=== PATIENT | male | born 1990 | race Caucasian/White ===

== ENCOUNTER 2020-06-28 16:39 | Emergency (ER) | payer OTHER, SELFPAY ==
--- NOTE | ~2020-06-28 | CT_ITS ---
EXAMINATION: CT abdomen pelvis w con DATE: 06/28/2020 17:44 INDICATION: Abdominal pain. TECHNIQUE: Computed tomography (CT) of the abdomen and pelvis was performed with 100 mL Omnipaque-350 intravenous contrast. Automated exposure control and iterative reconstruction technique were employe d. The dose-length product was 630.64 mGy-cm. COMPARISON: None FINDINGS: Minimal bibasilar atelectasis. Heart size is normal. No pericardial or pleural effusion. Liver, decom pressed gallbladder, spleen, pancreas, bilateral adrenal glands and kidneys are normal. Bowels are un remarkable with no wall thickening or obstruction. Small focus of inflammatory stranding in the fat a nterior to the hepatic flexure of the colon without associated diverticulum suggesting either epiploi c appendagitis or fat necrosis. The appendix is not visualized. No pericecal inflammatory change to s uggest acute appendicitis. Tiny fat-containing umbilical hernia and small fat-containing left inguina l hernia. Bladder is normal. No free intraperitoneal gas or fluid. No pathologically enlarged abdomin al or pelvic lymphadenopathy. Mild spondylosis at L5-S1 including 4 mm retrolisthesis L5 on S1. IMPRESSION: 1. Small focus of inflammatory stranding in the fat anterior to the hepatic flexure of the colon with out associated diverticulum suggesting either epiploic appendagitis or fat necrosis. Reviewed, dictated and finalized at location A. IMPRESSION: 1. Small focus of inflammatory stranding in the fat anterior to the hepatic fle xure of the colon without associated diverticulum suggesting either epiploic ap pendagitis or fat necrosis.
[2020-06-28 16:47] VITALS: BP 130/77; PULSE 87; RESP 18; TEMP 36.6; O2SAT 98
[2020-06-28 17:08] LABS: Hematocrit 44.4 % (42.0-52.0); Hemoglobin 15.3 g/dL (14.0-18.0); Immature Granulocyte Percent A 0.4 % (0-0.5); Mean Corpuscular HGB Conc 34.5 g/dl (32-36); Mean Corpuscular Hemoglobin 30.4 pg (26-34); Mean Corpuscular Volume 88.3 fl (80-100); Mean Platelet Volume 8.7 fl (7.4-10.4); Neutrophils Percent Auto 49.2 % (45.5-73.1); Platelet Count Result 300 k/mm3 (150-375); Red Blood Count 5.03 M/mm3 (4.6-6.20); Red Cell Distribution Width 12.6 % (11.5-14.5); White Blood Count 8.3 K/mm3 (4.5-10.0)
[2020-06-28 17:09] LABS: Basophils Percent Auto 0.4 % (0.2-1.2); Eosinophils Absolute Auto 0.1 K/mm3 (0-0.3); Eosinophils Percent Auto 1.1 % (0-4.4); Immature Granulocyte Absolute 0.03 K/mm3 (0.00-0.031); Lymphocytes Absolute Auto 3.09 K/mm3 (0.9-3.2); Lymphocytes Percent Auto 37.4 % (18.3-44.2); Monocytes Percent Auto 11.5 % (2.6-8.5); Neutrophils Absolute Auto 4.1 K/mm3 (1.3-6.7)
[2020-06-28 17:10] LABS: Add Urine Microscopic? NO; Appearance Urine Clear (Clear); Bilirubin Urine Negative (Negative); Blood Urine Negative (Negative); Color Urine Yellow (Yellow); Glucose Urine UA Negative (Negative); Ketones Urine Negative (Negative); Leukocyte Esterase Ur Negative LEU/UL (Negative); Nitrate Urine Negative (Negative); Protein Urine Negative (Negative); Specific Grav Ur 1.024 (1.001-1.035); Urobilinogen Urine Negative mg/dL (<2.0)
[2020-06-28] MEDS: SODIUM CHLORIDE 0.9% IV 1,000 ML 999 ML IV CONT (17:10)
--- NOTE | 2020-06-28 17:16 | ED.ABDPAIN ---
HPI - Abdominal Pain General Chief Complaint: Abdominal Pain Stated Complaint: R ABD PAIN SINCE SUNDAY Time Seen by Provider: 06/28/20 16:59 Source: patient Mode of arrival: ambulatory Limitations: no limitations History of Present Illness HPI narrative: Patient presents with right upper quadrant abdominal pain for 3 days. He has had no fever, nausea or vomiting. He gauges the pain at 8 out of 10. If he holds perfectly still it is more like 3 out of 10. He had some rectal bleeding today. He has a history of hemorrhoids. He also has had his appendix out. He has never had ulcerative colitis or Crohn's disease. He does not smoke cigarettes, he rarely drinks alcohol, he does not do marijuana. His surgeries include appendectomy, and left wrist fracture. 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 MD elicited complaint: abdominal pain Pertinent past history: other (Appendectomy) Onset (ago): day(s) Pain Consistency: intermittent Location: RUQ Severity: severe Radiation: none Migration to: no migration Exacerbating factors: movement Relieving factors: other (Immobilization) Associated symptoms: hematochezia Related Data Home Medications Medication Instructions Recorded Confirmed gabapentin 300 mg PO TID 06/28/20 Allergies Allergy/AdvReac Type Severity Reaction Status Date / Time morphine Allergy Mild N/V Verified 06/28/20 16:50 Review of Systems Review of Systems: Narrative: CONSTITUTIONAL: Denies fever, chills, or sweats. EYES: Denies visual changes, redness, or discharge. ENT: Denies rhinorrhea, congestion, sore throat, or otalgia. CARDIOVASCULAR: Denies chest pain, palpitations, or edema. RESPIRATORY: Denies cough or dyspnea. GASTROINTESTINAL: He has abdominal pain, but not nausea, vomiting, or diarrhea. GENITOURINARY: Denies dysuria or hematuria. SKIN: Denies rash or itching. MUSCULOSKELETAL: Denies back pain, joint pain, or myalgia. NEUROLOGIC: Denies headache, numbness, or weakness. He has neuropathy. All systems reviewed & are unremarkable except as noted in HPI and below PMFSH Past Medical History Medical History Peripheral neuropathy Surgical History Surgical History History of appendectomy History of surgery on left wrist Social History Social History (Updated 06/28/20 @ 17:19 by Marley Garcia MD) Smoking status: Never smoker Alcohol intake: current Substance use: never Exam Narrative: Exam Narrative: GENERAL: Well-appearing, well-nourished, and in no acute distress. HEAD: Normocephalic, atraumatic. EYES: PERRLA and EOMI. ENT: Nares clear, no rhinorrhea or epistaxis. Mucous membranes moist. NECK: Supple. CHEST: Clear to auscultation. No respiratory distress. HEART: Regular rate and rhythm. No murmur heard. Normal peripheral pulses. ABDOMEN: Soft, tender, nondistended, normal active bowel sounds. EXTREMITIES: Normal range of motion. No edema. SKIN: Warm, dry, no rash. NEURO: No focal deficits. Alert and oriented x3. PSYCH: Normal mood and affect. Course Reevaluation(s) Reevaluation #1: Patient had refused a fentanyl he was afraid of the narcotic. He still has the right upper quadrant pain. He will accept some Vicodin as outpatient medication. I encouraged him to see Dr. Falk for follow-up on his rectal bleeding. I explained he needed a colonoscopy to determine the source of the bleeding. Date: 06/28/20 Time: 18:21 Vital Signs Vital signs: Vital Signs Temperature 97.9 F 06/28/20 16:47 Pulse Rate 87 06/28/20 16:47 Respiratory Rate 18 06/28/20 16:47 Blood Pressure 130/77 06/28/20 16:47 Pulse Oximetry 98 06/28/20 16:47 Temperature 97.9 F 06/28/20 16:47 Pulse Rate 87 06/28/20 16:47 Respiratory Rate 18 06/28/20 16:47 Blood Pressure 130/77 06/28/20 16:47 Pulse Oximetry 98 06/28/20 16:47 MDM - Abdominal Pain MDM Narrative
[2020-06-28 17:19] LABS: Alanine Aminotransferase 37 U/L (4-50); Albumin Level 4.3 g/dL (3.5-5.1); Alkaline Phosphatase 107 U/L (38-126); Anion Gap 9 mmol/L (8-16); Aspartate Amino Transferase 32 U/L (17-59); Bilirubin,Total 0.2 mg/dL (0.2-1.3); Blood Urea Nitrogen 19 mg/dL (9-20); Calcium 9.2 mg/dL (8.4-10.2); Carbon Dioxide 26 mmol/L (22-30); Chloride 102 mmol/L (98-107); Estimated CRCL calculation 80 ml/min; Estimated Glomerular Filt Rate > 60; Glucose 96 mg/dL (75-110); Lipase 147 U/L (23-300); Sodium 137 mmol/L (137-145)
--- NOTE | 2020-06-28 17:26 | PC.NURSE ---
Pt. refused fentanyl medication. Rest of medication wasted and documented in pyxis.
--- NOTE | 2020-06-28 17:26 | PC.NURSE ---
Called lab to add PT INR
[2020-06-28 17:42] LABS: Prothrombin Time 12.6 Seconds (11.1-14.7)
[2020-06-28 18:41] VITALS: BP 128/74; PULSE 70; RESP 14; O2SAT 99
== END 2020-06-28 18:42 | disposition home or self-care (01) ==
PROVIDERS: Emergency Provider Emergency Medicine; PCP Nurse Practitioner
DX: K63.89 Other specified diseases of intestine (principal); G62.9 Polyneuropathy, unspecified
CPT/HCPCS: 36415; 74177; 80053; 81003; 83690; 85025; 85610; 96360; 99284; J3010; J7030; Q9967

== ENCOUNTER 2020-11-21 12:42 | Emergency (ER) | payer OTHER, SELFPAY ==
--- NOTE | ~2020-11-21 | XR_ITS ---
XR lumbar spine 2-3V 11/21/2020 13:20 Indication: Low back pain. Radiculopathy. Procedure: 3 views of the lumbar spine Comparison: No prior studies for comparison. Findings: Vertebral body heights are maintained. No fracture or traumatic malalignment. No evidence f or spondylolisthesis. Mild levocurvature of the lumbar spine. Sacral foramen are symmetric. Impression: 1: No acute abnormality of the lumbar spine. Reviewed, dictated and finalized at location A. IRATORY MANAGER Impression: 1: No acute abnormality of the lumbar spine.
[2020-11-21 12:47] VITALS: BP 134/85; PULSE 91; RESP 18; TEMP 36.3; O2SAT 100
[2020-11-21] MEDS: predniSONE 20 MG TABLET 60 MG PO (13:10)
[2020-11-21] MEDS: IBUPROFEN 400 MG TABLET 800 MG PO (13:10)
[2020-11-21] MEDS: CYCLOBENZAPRINE HCL 10 MG TABLET PO (13:10)
[2020-11-21] MEDS: HYDROcodone/acetaminophen (*CRX) 5-325 MG TABLET 1 TAB PO (13:10)
--- NOTE | 2020-11-21 13:13 | ED.BACK ---
HPI - Back Pain/Injury General Chief Complaint: Back Pain/Injury Stated Complaint: hurt back lifting yesterday Time Seen by Provider: 11/21/20 12:52 Source: patient Mode of arrival: ambulatory Limitations: no limitations History of Present Illness HPI Narrative: Patient a 30-year-old male complaining of low back pain right side rating to his right lower extremity started when he woke up this morning. Patient states that the pain actually started yesterday when he was moving heavy furnitures but worse when he woke up this morning he was unable to walk due to the severity of the pain. Patient states his pain is a 10 out of 10 dull aching. Patient denies any urinary or bowel incontinence, fever, chills or urinary symptoms. Patient denies any weakness or numbness. Related Data Home Medications Medication Instructions Recorded Confirmed gabapentin 300 mg PO TID 06/28/20 Allergies Allergy/AdvReac Type Severity Reaction Status Date / Time morphine Allergy Intermediate Hives Verified 11/21/20 12:50 Review of Systems Review of Systems: All systems reviewed & are unremarkable except as noted in HPI and below Constitutional: Constitutional: Denies body ache(s), Denies chills, Denies excessive sweating, Denies fatigue, Denies fever(s), Denies headache(s), Denies lethargy, Denies malaise, Denies weakness and Denies weight loss Eyes: Eyes: Denies blurry vision, Denies change in vision and Denies loss of vision ENT: Denies dizziness, Denies ear discharge, Denies headache(s), Denies lip swelling, Denies epistaxis, Denies nasal congestion, Denies neck pain, Denies throat swelling and Denies tongue swelling Cardiovascular: Cardiovascular: Denies chest pain, Denies chest pain at rest, Denies chest pain with activity, Denies diaphoresis, Denies rapid heart rate, Denies edema, Denies irregular heart rhythm, Denies lightheadedness, Denies palpitations, Denies dyspnea and Denies dyspnea on exertion Respiratory: Respiratory: Denies chest congestion, Denies cough, Denies hemoptysis, Denies dyspnea and Denies dyspnea on exertion Gastrointestinal: Gastrointestinal: Denies abdominal pain, Denies melena, Denies hematochezia, Denies diarrhea, Denies nausea, Denies vomiting and Denies hematemesis Musculoskeletal: Musculoskeletal: Denies abnormal gait, Denies deformity, Denies joint swelling, Denies limited range of motion, Denies neck pain and Denies numbness Neurologic: Denies Abnormal speech present, Denies abnormal gait, Denies confusion, Denies dizziness, Denies headache(s), Denies focal weakness, Denies loss of vision, Denies numbness, Denies Other visual disturbances, Denies Sensory deficit (Neuro) and Denies weakness Psychiatric: Psychiatric: Denies confusion, Denies depression, Denies auditory hallucinations, Denies homicidal ideation and Denies suicidal ideation Endocrine: Endocrine: Denies cold intolerance, Denies excessive sweating, Denies fatigue, Denies heat intolerance and Denies palpitations Hematologic/Lymphatic: Hematologic/Lymphatic: Denies easy bleeding and Denies easy bruising Allergic/Immunologic: Allergic/Immunologic: Denies lip swelling, Denies throat swelling and Denies tongue swelling PMFSH Past Medical History Medical History (Updated 11/21/20 @ 13:31 by Timothy Espana MD) Peripheral neuropathy Surgical History Surgical History History of appendectomy History of surgery on left wrist Social History Social History (Updated 06/28/20 @ 17:19 by Marley Garcia MD) Smoking status: Never smoker Alcohol intake: current Substance use: never Gender identity (if verbalized by the patient): Male Exam Const: General: cooperative, healthy appearing, comfortable, no acute distress, well developed, alert and awake; No confusion Orientation/consciousness: oriented to person, oriented to place, oriented to time, patient oriented x3 and No confusion Limitations
--- NOTE | 2020-11-21 13:39 | PC.NURSE ---
Dr. Espana at bedside to discuss results with pt.
== END 2020-11-21 13:50 | disposition home or self-care (01) ==
PROVIDERS: Emergency Provider Emergency Medicine; PCP Nurse Practitioner
DX: S39.012A Strain of muscle, fascia and tendon of lower back, initial encounter (principal); G62.9 Polyneuropathy, unspecified; X50.0XXA Overexertion from strenuous movement or load, initial encounter
CPT/HCPCS: 72100; 99283; A9270; J7512

== ENCOUNTER 2021-01-17 16:47 | Outpatient (CLI) | payer OTHER, SELFPAY ==
--- NOTE | ~2021-01-17 | XR_ITS ---
XR lumbar spine 2-3V 01/17/2021 17:04 Indication: Low back pain Procedure: 3 views lumbar spine Comparison: 11/21/2020 Findings: Mild levocurvature of the lumbar spine. Vertebral body heights are maintained. Mild disc na rrowing at L5-S1. No evidence for spondylolysis or spondylolisthesis. Pedicles intact. Impression: 1: Mild lumbar spondylosis. Reviewed, dictated and finalized at location A. Impression: 1: Mild lumbar spondylosis.
== END 2021-01-17 16:48 | disposition home or self-care (01) ==
LOC: CHSIMG 16:49
PROVIDERS: PCP Family Medicine; Visit Provider Nurse Practitioner Family
DX: M54.5 Low back pain (principal)
CPT/HCPCS: 72100

== ENCOUNTER 2021-01-22 09:18 | Outpatient (CLI) | payer OTHER, SELFPAY ==
--- NOTE | ~2021-01-22 | MR_ITS ---
. EXAMINATION: MR lumbar spine wo con DATE: 01/22/2021 10:13 INDICATION: Low back pain. TECHNIQUE: Magnetic resonance imaging (MRI) of the lumbar spine was performed without intravenous con trast. Sequences included sagittal T2-weighted FSE, sagittal T2-weighted FS FSE, sagittal T1-weighted FSE, and axial T2-weighted FSE. COMPARISON: Lumbar spine radiographs 01/17/2021 FINDINGS: There is 7 degrees levocurvature of lumbar spine. There is 3 mm retrolisthesis of L5 on S1. Vertebral body heights are normal. There is mildly decreased disc height at L5-S1. The distal spinal cord signal intensity is normal. The conus medullaris is at L1. The following disc levels are specif ically discussed: L1-L2 through L4-L5: The disc does not extend beyond the endplate margin. There is no facet joint ost eoarthritis. There is no neural foraminal stenosis. There is no central canal stenosis. L5-S1: The disc is bulging and has an annular fissure. There is no facet joint osteoarthritis. There is no neural foraminal stenosis. There is mild central canal stenosis. IMPRESSION: 1. Mild lumbar spondylosis. Reviewed, dictated and finalized at location A. OY IMPRESSION: 1. Mild lumbar spondylosis.
== END 2021-01-22 09:19 | disposition home or self-care (01) ==
LOC: CHSIMG 09:19
PROVIDERS: PCP Nurse Practitioner Family; Visit Provider Nurse Practitioner Family
DX: M54.9 Dorsalgia, unspecified (principal)
CPT/HCPCS: 72148

== ENCOUNTER 2021-03-28 15:06 | Outpatient (CLI) | payer OTHER, SELFPAY ==
--- NOTE | ~2021-03-28 | XR_ITS ---
XR foot LT min 3V DATE: 03/28/2021 15:23 INDICATION: Pain and swelling of left foot and dorsal lateral tarsal area TECHNIQUE: 4 views COMPARISON: None FINDINGS: No fracture, dislocation, periosteal reaction or bone destruction, erosive change or other significant abnormality. IMPRESSION: Negative Reviewed, dictated and finalized at location A. IMPRESSION: Negative
== END 2021-03-28 15:07 | disposition home or self-care (01) ==
LOC: CHSIMG 15:09
PROVIDERS: PCP Nurse Practitioner Family; Visit Provider Nurse Practitioner Family
DX: M79.672 Pain in left foot (principal)
CPT/HCPCS: 73630

== ENCOUNTER 2021-05-23 13:28 | Outpatient (CLI) | payer OTHER, SELFPAY ==
[2021-05-23 13:41] LABS: Basophils Absolute Auto 0.03 K/mm3 (0.00-0.10); Basophils Percent Auto 0.4 % (0.0-1.0); Eosinophils Absolute Auto 0.18 K/mm3 (0.02-0.50); Eosinophils Percent Auto 2.2 % (1.0-6.0); Hematocrit 45.9 % (40.0-54.0); Hemoglobin 15.4 g/dL (14.0-18.0); Immature Granulocyte Absolute 0.03 K/mm3 (0.00-0.00); Immature Granulocyte Percent A 0.4 % (0.0-0.0); Lymphocytes Absolute Auto 2.24 K/mm3 (1.10-4.50); Mean Corpuscular HGB Conc 33.6 g/dL (32.0-36.0); Mean Corpuscular Hemoglobin 30.1 pg (27.0-31.0); Mean Corpuscular Volume 89.8 fL (78.0-102.0); Mean Platelet Volume 8.5 fl (8.7-11.0); Monocytes Absolute Auto 0.96 K/mm3 (0.10-0.90); Neutrophils Absolute Auto 4.6 K/mm3 (1.7-7.2); Platelet Count Result 356 K/mm3 (150-420); Red Blood Count 5.11 M/mm3 (4.70-6.10); Red Cell Distribution Width 12.3 % (11.6-14.4)
[2021-05-23 15:13] LABS: Alanine Aminotransferase 18 U/L (16-63); Alkaline Phosphatase 87 U/L (46-116); Anion Gap 10 mmol/L (8-16); Aspartate Amino Transferase 17 U/L (15-37); Bilirubin,Total 0.3 mg/dL (0.00-1.00); Blood Urea Nitrogen 14 mg/dL (7-18); Calcium 9.2 mg/dL (8.5-10.1); Carbon Dioxide 29 mmol/L (21-32); Chloride 103 mmol/L (98-108); Estimated Glomerular Filt Rate > 60; Glucose 86 mg/dL (70-99); Osmolality Calculated 293 mOsm/kg (285-295); Potassium 4.6 mmol/L (3.5-5.1); Sodium 142 mmol/L (136-145); Total Protein 7.5 g/dL (6.4-8.2); Uric Acid 5.6 mg/dL (3.5-7.2)
== END 2021-05-23 13:29 | disposition home or self-care (01) ==
LOC: CHSLAB 13:31
PROVIDERS: PCP Nurse Practitioner Family; Visit Provider Nurse Practitioner Family
DX: M79.672 Pain in left foot (principal)
CPT/HCPCS: 36415; 80053; 84550; 85025

== ENCOUNTER 2021-11-16 14:11 | Outpatient (CLI) | payer OTHER, SELFPAY ==
[2021-11-16 15:09] LABS: SARS-CoV-2 Ag Negative (Negative)
== END 2021-11-16 14:12 | disposition home or self-care (01) ==
PROVIDERS: PCP Nurse Practitioner Family; Visit Provider Nurse Practitioner Family
DX: Z20.822 Contact with and (suspected) exposure to COVID-19 (principal)
CPT/HCPCS: 87426; C9803

== ENCOUNTER 2021-11-28 14:27 | Outpatient (CLI) | payer SELFPAY ==
[2021-11-28 15:20] LABS: SARS-CoV-2 Ag Positive (Negative)
[2021-11-28 15:21] LABS: Influenza Control Valid (Valid)
== END 2021-11-28 14:28 | disposition home or self-care (01) ==
LOC: CHSLAB 14:30
PROVIDERS: PCP Nurse Practitioner Family; Visit Provider Nurse Practitioner Family
DX: U07.1 COVID-19 (principal); R09.81 Nasal congestion
CPT/HCPCS: 87426; 87804; C9803

== ENCOUNTER 2023-02-01 08:33 | Emergency (ER) | payer BC, SELFPAY ==
--- NOTE | ~2023-02-01 | XR_ITS ---
Portable chest x-ray Comparison: None Clinical History: Cough Findings: Lungs are clear, without focal consolidation or pleural effusion. Cardiomediastinal silho uette is unremarkable. Bones and soft tissues are unremarkable. Impression: Normal chest. Reviewed, dictated and finalized at location M. Impression: Normal chest.
[2023-02-01 08:45] VITALS: BP 144/90; PULSE 80; RESP 18; TEMP 35.7; O2SAT 97
[2023-02-01 08:51] VITALS: O2SAT 97
[2023-02-01 09:28] LABS: Influenza A QL RT-PCR Negative (Negative); Influenza B QL RT-PCR Negative (Negative); SARS-CoV-2 RNA PCR Negative (Negative)
[2023-02-01 09:31] LABS: RSV RNA, RT-PCR Negative (Negative)
--- NOTE | 2023-02-01 09:34 | ED.SOB ---
HPI - SOB/Dyspnea General Chief Complaint: Shortness of Breath/Dyspnea Stated Complaint: sore throat Time Seen by Provider: 02/01/23 08:34 Source: patient Mode of arrival: ambulatory Limitations: no limitations History of Present Illness HPI Narrative: This is a 33 year gentleman that was recently diagnosed with strep currently on antibiotics is a smoker and has been on antibiotics for strep throat but overnight had coughing spell and felt like he was short of breath there is no audible wheezing no fever chills no nausea vomiting no abdominal pain no chest pain. MD elicited complaint: shortness of breath and cough Onset (ago): day(s) Context: recent illness Timing: intermittent Severity: mild Related Data Allergies Allergy/AdvReac Type Severity Reaction Status Date / Time morphine Allergy Intermediate Hives Verified 10/18/22 07:34 Review of Systems Review of Systems: All systems reviewed & are unremarkable except as noted in HPI and below PMFSH Past Medical History Medical History (Updated 02/01/23 @ 09:40 by Chad Brody MD) Peripheral neuropathy Surgical History Surgical History History of appendectomy History of surgery on left wrist Social History Social History Years smoked: 10 Smoking status: Current every day smoker Alcohol intake: current Substance use: never Gender identity (if verbalized by the patient): Male Exam Const: General: healthy appearing Nutritional Appearance: well nourished Orientation/consciousness: patient oriented x3 Limitations: no limitations HENMT: Head: normal to inspection Face and sinus: normal facial exam Mouth: Yes Abnormal oral and palatal mucosa present Eyes: Conjunctivae: conjunctivae normal Pupils: Equal, round and reactive pupils present EOM: EOMs intact bilaterally Direct Ophthalmoscopy: no photophobia Neck: Neck: normal visual inspection Chest: Chest palpation & inspection: normal inspection of the chest Resp: Effort & Inspection: normal respiratory effort Cardio: Rate: regular rate Rhythm: regular rhythm GI: GI Palp: Yes Soft to palpation Auscultation: normal bowel sounds : General: Yes bladder normal to palpation Urinary Catheter: Urinary Catheter: patent and draining Skin: General skin exam: normal color Rashes: no rashes Wounds: no wounds Neuro: General: patient oriented x3 Cranial nerves: Yes Nystagmus not present Speech: normal speech Gait exam (Neuro): Normal gait present Extrem: General: normal to inspection Psych: Mental Status: mental status grossly normal Affect: normal affect Course Course Emergency Course: X-ray reviewed which shows no acute abnormalities some COVID influenza and RSV were negative. Vital Signs Vital signs: Vital Signs Temperature 35.7 C L 02/01/23 08:45 Pulse Rate 80 02/01/23 08:45 Respiratory Rate 18 02/01/23 08:45 Blood Pressure 144/90 H 02/01/23 08:45 Pulse Oximetry 97 02/01/23 08:45 Temperature 35.7 C L 02/01/23 08:45 Pulse Rate 80 02/01/23 08:45 Respiratory Rate 18 02/01/23 08:45 Blood Pressure 144/90 H 02/01/23 08:45 Pulse Oximetry 97 02/01/23 08:51 Oxygen Delivery Room Air 02/01/23 08:51 MDM - SOB/Dyspnea Lab Data Labs: Lab Results 02/01/23 Range/Units 08:44 Influenza A (RT-PCR) Negative (Negative) Influenza B (RT-PCR) Negative (Negative) RSV (RT-PCR) Negative (Negative) SARS-CoV-2 RNA (RT-PCR) Negative (Negative) Critical Care Time Critical Care Time Critical Care Time: No Discharge Plan Discharge Clinical Impression: Strep sore throat, Respiratory tract congestion with cough Patient Disposition: Home, Self-Care Condition: Stable Instructions: Antibiotic Form, Strep Throat (ED) Additional Instructions: take medicine as prescribed and follow-up primary if symptoms p
[2023-02-01 09:53] VITALS: BP 120/89; PULSE 88; RESP 18; TEMP 36.2; O2SAT 98
== END 2023-02-01 10:01 | disposition home or self-care (01) ==
PROVIDERS: Emergency Provider Emergency Medicine; PCP Physician Assistant
DX: J02.0 Streptococcal pharyngitis (principal); R09.89 Other specified symptoms and signs involving the circulatory and respiratory systems; F17.210 Nicotine dependence, cigarettes, uncomplicated; Z20.822 Contact with and (suspected) exposure to COVID-19
CPT/HCPCS: 71045; 87637; 99283

== ENCOUNTER 2023-03-17 14:46 | Emergency (ER) | payer OTHER, BC, SELFPAY ==
--- NOTE | ~2023-03-17 | US_ITS ---
EXAMINATION: US right upper quadrant DATE: 03/17/2023 15:44 INDICATION: Right upper quadrant abdominal pain. TECHNIQUE: Multiple grayscale and Doppler ultrasound images of the abdomen were obtained. COMPARISON: CT abdomen and pelvis 06/28/2020 FINDINGS: The pancreas is obscured by bowel gas. There is diffuse hepatic steatosis. No liver surface nodularity. There is normal flow in main portal vein. The gallbladder is contracted. No gallstones. There is no sonographic Gann sign. The common duct is normal and measures 4 mm. IMPRESSION: 1. Diffuse hepatic steatosis. Reviewed, dictated and finalized at location A.
--- NOTE | ~2023-03-17 | XR_ITS ---
EXAMINATION: XR abdomen/kub 1V DATE: 03/17/2023 16:21 INDICATION: Right abdominal pain. TECHNIQUE: A supine view of the abdomen on 2 radiographs was obtained. COMPARISON: CT abdomen and pelvis 06/28/2020 FINDINGS: There are no dilated loops of bowel. There is a moderate volume of stool in the colon. Ther e is no visible urolithiasis. IMPRESSION: 1. Normal bowel gas pattern. Reviewed, dictated and finalized at location E.
[2023-03-17 14:54] VITALS: BP 146/98; PULSE 97; RESP 18; TEMP 36.8; O2SAT 96
[2023-03-17 15:07] LABS: Basophils Percent Auto 0.3 % (0.2-1.2); Eosinophils Absolute Auto 0.1 K/mm3 (0-0.3); Eosinophils Percent Auto 0.8 % (0-4.4); Hematocrit 46.2 % (42.0-52.0); Hemoglobin 15.6 g/dL (14.0-18.0); Immature Granulocyte Absolute 0.05 K/mm3 (0.00-0.031); Immature Granulocyte Percent A 0.5 % (0-0.5); Lymphocytes Absolute Auto 2.96 K/mm3 (0.9-3.2); Mean Corpuscular HGB Conc 33.8 g/dl (32-36); Mean Corpuscular Hemoglobin 30.5 pg (26-34); Mean Corpuscular Volume 90.4 fl (80-100); Mean Platelet Volume 8.3 fl (7.4-10.4); Monocytes Absolute Auto 1.1 K/mm3 (0.1-0.6); Monocytes Percent Auto 11.4 % (2.6-8.5); Neutrophils Absolute Auto 5.6 K/mm3 (1.3-6.7); Platelet Count Result 352 k/mm3 (150-375); Red Blood Count 5.11 M/mm3 (4.6-6.20); Red Cell Distribution Width 12.7 % (11.5-14.5); White Blood Count 9.9 K/mm3 (4.5-10.0)
[2023-03-17 15:18] LABS: Alanine Aminotransferase 36 U/L (6-50); Albumin Level 4.7 g/dL (3.5-5.1); Alkaline Phosphatase 100 U/L (38-126); Anion Gap 10 mmol/L (8-16); Aspartate Amino Transferase 33 U/L (17-59); Bilirubin,Total 0.7 mg/dL (0.2-1.3); Blood Urea Nitrogen 15 mg/dL (9-20); Carbon Dioxide 27 mmol/L (22-30); Chloride 104 mmol/L (98-107); Estimated CRCL calculation 100 ml/min; Estimated Glomerular Filt Rate > 60; Glucose 99 mg/dL (65-110); Lipase 155 U/L (23-300); Potassium 4.3 mmol/L (3.4-5.0); Sodium 141 mmol/L (137-145)
[2023-03-17] MEDS: fentaNYL CITRATE INJ (*CRX) 100 MCG/2 ML VIAL 50 MCG IV PUSH (15:44)
[2023-03-17 15:47] VITALS: BP 128/72; PULSE 89; RESP 16; O2SAT 97
[2023-03-17 16:13] LABS: Appearance Urine Turbid (Clear); Bacteria Urine None Seen /hpf; Bilirubin Urine Negative (Negative); Blood Urine Negative (Negative); Color Urine Dark Yellow (Yellow); Glucose Urine UA Negative (Negative); Ketones Urine Trace mg/dL (Negative); Leukocyte Esterase Ur Negative LEU/UL (Negative); Mucus Urine Present /lpf; Nitrate Urine Negative (Negative); Protein Urine Trace mg/dL (Negative); RBC Urine 0-2 /hpf (0-2); Squamous Epithelial Cell Urine None seen /hpf (Few); WBC Urine 0-5 /hpf; pH Urine 5.5 (5.0-9.0)
[2023-03-17 16:14] LABS: Add Urine Microscopic? YES
--- NOTE | 2023-03-17 17:20 | ED.GENADULT ---
HPI - General Adult General Chief complaint: Abdominal Pain Stated complaint: ab pain Time Seen by Provider: 03/17/23 14:55 History of Present Illness HPI narrative: Patient is a 33-year-old male who presents ER with right side abdominal pain. Ongoing over the last day. Mid abdomen. Worse with deep breath. No chest pain or dyspnea. No runny nose or sore throat or cough. No associated with eating or drinking. Reports he has had some GI issues and he is currently scheduled to have an EGD as well as a colonoscopy. No alleviating factors that he is found. Related Data Allergies Allergy/AdvReac Type Severity Reaction Status Date / Time morphine Allergy Intermediate Hives Verified 03/17/23 15:01 Review of Systems Review of Systems: All systems reviewed & are unremarkable except as noted in HPI and below Constitutional: Constitutional: Denies chills and Denies fever(s) ENT: Denies nasal congestion and Denies sore throat Cardiovascular: Cardiovascular: Denies chest pain, Denies rapid heart rate and Denies radiating jaw, neck or arm pain Respiratory: Respiratory: Denies cough, Denies dyspnea and Denies wheezing Gastrointestinal: Gastrointestinal: Reports abdominal pain, Denies diarrhea, Denies nausea and Denies vomiting PMFSH Past Medical History Medical History (Updated 03/17/23 @ 17:26 by Deny Hoffman MD) Peripheral neuropathy Surgical History Surgical History History of appendectomy History of surgery on left wrist Social History Social History Years smoked: 10 Smoking status: Current every day smoker Alcohol intake: current Substance use: never Gender identity (if verbalized by the patient): Male Exam Narrative: GENERAL: Well-appearing, well-nourished, and in no acute distress. HEAD: Normocephalic, atraumatic. EYES: PERRL and EOMI. ENT: Mucous membranes moist. CHEST: Clear to auscultation. No respiratory distress. HEART: Regular rate and rhythm. Normal peripheral pulses. ABDOMEN: Soft, right-sided lateral mid abdominal tenderness without guarding, nondistended. EXTREMITIES: Normal range of motion. No edema. SKIN: Warm, dry, no rash. NEURO: Alert and oriented x3. PSYCH: Normal mood and affect. Course Course Emergency Course: Patient's discomfort is not located in his chest. X-ray shows moderate stool. May have some fecal loading is causing discomfort and we recommend stool softener at home. Patient verbalized understanding treatment plan. Discharge. Vital Signs Vital signs: Vital Signs Temperature 98.2 F 03/17/23 14:54 Pulse Rate 97 03/17/23 14:54 Respiratory Rate 18 03/17/23 14:54 Blood Pressure 146/98 H 03/17/23 14:54 Pulse Oximetry 96 03/17/23 14:54 Oxygen Delivery Room Air 03/17/23 14:54 Temperature 98.2 F 03/17/23 14:54 Pulse Rate 97 03/17/23 14:54 Respiratory Rate 18 03/17/23 14:54 Blood Pressure 146/98 H 03/17/23 14:54 Pulse Oximetry 96 03/17/23 14:54 Oxygen Delivery Room Air 03/17/23 14:54 Medical Decision Making Vital Signs Vital Signs: Vital Signs Temperature 98.2 F 03/17/23 14:54 Pulse Rate 97 03/17/23 14:54 Respiratory Rate 18 03/17/23 14:54 Blood Pressure 146/98 H 03/17/23 14:54 Pulse Oximetry 96 03/17/23 14:54 Oxygen Delivery Room Air 03/17/23 14:54 Temperature 98.2 F 03/17/23 14:54 Pulse Rate 97 03/17/23 14:54 Respiratory Rate 18 03/17/23 14:54 Blood Pressure 146/98 H 03/17/23 14:54 Pulse Oximetry 96 03/17/23 14:54 Oxygen Delivery Room Air 03/17/23 14:54 Lab Data 03/17/23 14:59 03/17/23 14:59 Labs: Lab Results 03/17/23 03/17/23 Range/Units 14:59 15:47 WBC 9.9 (4.5-10.0) K/mm3 RBC 5.11 (4.6-6.20) M/mm3 Hgb 15.6 (14.0-18.0) g/dL Hct 46.2 (42.0-52.0) % MCV 90.4 (80-100) fl MCH 30.
[2023-03-17 17:30] VITALS: BP 115/60; PULSE 80; RESP 16; O2SAT 96
== END 2023-03-17 17:47 | disposition home or self-care (01) ==
PROVIDERS: Emergency Provider Emergency Medicine; PCP Physician Assistant
DX: K59.00 Constipation, unspecified (principal); G62.9 Polyneuropathy, unspecified; F17.200 Nicotine dependence, unspecified, uncomplicated
CPT/HCPCS: 36415; 74018; 76705; 80053; 81001; 83690; 85025; 96374; 99284; J3010

== ENCOUNTER 2025-07-01 10:03 | Outpatient (CLI) | payer SELFPAY ==
--- OUTSIDE RECORDS SUMMARY | 2016-12-26 04:45 | XMS_ITS | Continuity of Care Document ---
Author Organization [facility] Address [address] [address] [place] [address] Phone Care Team Providers Care Neckties Painter Name Role Phone Ezra Gant MD Unavailable Unavailable Allergies, Adverse Reactions, Alerts Substance Reaction Status Criticality No Known Allergies Active No Inform ation Medications Medication Instructions Dosage Effective Dates (start - stop) Status Comments Gravity 5 mg-325 mg tablet take 1 tablet by oral route every 6 hours as needed for pain - Active PRN for pain, avoid driving or operate machines Procedures Procedure Date PREV VISIT, [facility], AGE 18-39 Advance Directives Directive Yes / No Effective Date File Name No Information Encounters Encounter Description Practice Location Reason(s) For Visit Diagnoses Date Provider Providers Copied on Encounter PREV VISIT, NEW, AGE 18-39 [facility], [address] [place], [place], [id number], [place] tel:[phone] [facility] PHysical (chief complaint) Encntr for general adult medical exam w/o abnormal findings Stalin Munguia. [address], [place], [id number], [place]. tel:[phone] Referring Provider: Ezra Gant, [address] [place], [id number]. tel:[phone] Family History Family Member Type Diagnosis Age At Onset Sister Problem (finding) Alive and well Mother Problem (finding) Alive and well Father Problem (finding) Alive and well Payers Payer name Insurance type Covered democrat ID Authoriza tion(s) No Information Social History Type Description Quantity Date Captured Comments Alcohol Use Details Caffeine Use Details Unknown Tobacco Use Status Cigarette smoker Smoking Status Current some day smoker Smoking Tobacco Use Details Cigarette: No Details Available Cigarette: No Details Available Sex Male Vital Signs Date / Time: Height Weight BMI Pulse Rate Blood Pressure Temperature Respiratory Rate Body Surface Area Head Circumference BMI percentile Pulse Ox Inhaled Ox 11:23 AM 66.00 in 155.00 lbs 25.0 2 kg/m eter (2) 73 /min 112/66 mm[Hg] 98.4 F 18 /min Chief Complaint And Reason For Visit From encounter dated '12/26/2016 09:45'. PHysical (chief complaint). Description: Pt needs annual physical. pt c/o bilateral foot pain for two years. Pt c/o heel pain. Pt c/o intermittent foot numbness around the plantar surface as well. Ptdenies any injury. Pt states that standing on foot all day hurts worse. Pt denies any swelling. Pt states that both his feet throbs at night. Pt states that sometimes he has difficulty walking on hisfoot due to pain Plan Of Treatment Date Type Action Status Referral Ordered: Podiatry (related to Encntr for general adult medical exam w/o abnormal findings) ordered Referral Ordered: Referrals: Podiatry. Evaluate and treat ordered History Of Present Illness Encounter Date Complaint History Of Prese nt Illness PHysical Pt needs annual physical. pt c/o bilateral foot pain for two years. Pt c/o heel pain. Pt c/o intermittent foot numbness around the plantar surface as well. Pt denies any injury. Pt states that standing on foot all day hurts worse. Pt denies any swelling. Pt states that both his feet throbs at night. Pt states that sometimes he has difficulty walking on his foot due to pain Instructions Date Instruction Additional Infor mation No Information Assessments Type Assessment Date assessment Encntr for general adult medical exam w/o abnormal findings Mental Status Date Cognitive Assessment Orientation - Marcy ed to time, place, person, situation.
--- OUTSIDE RECORDS SUMMARY | 2025-07-01 10:25 | XMS_ITS | Patient Health Record ---
Author Organization [facility] Address [address] [place], [place] [id number] Support Name Relationship Address Phone MACKENZIE MARION Emergency Contact Unknown [phone] ABIMAEL CHAVIRA Guarantor Unknown [phone] Reason For Referral No Information Plan Of Treatment No Information Insurance Providers Payer Name Payer Address Payer Phone Subscriber Number Group Number Insured Name Patient Relationship to Insured Coverage Start Date Coverage End Date R [place] / IS [address] [place] [id number] ABIMAEL CHAVIRA Self - patient is the insured
--- OUTSIDE RECORDS SUMMARY | 2025-07-01 10:25 | XMS_ITS | Encounter Summary ---
Author Organization [facility] Address [address] [place] [address] Care Team Providers Care Instructor Painting Name Role Phone Unavailable Primary Care Provider Unavailabl e Encounter Details Date Type Department Care Team (Late st Contact Info) Description 09/30/2023 Lab Requisition [facility] Laboratory Services [employer] [address] [place] [id number] [facility], External Provider [address] [place] [address] Social History Tobacco Use Types Packs/Day Years Used Date Smoking Tobacco: Every Day Cigarettes Smokeless Tobacco: Never Alcohol Use Standard Drinks/Week Comments Yes 0 (1 standard drink = 0.6 oz pur e alcohol) occasionally Sex and Gender Information Value Date Recorded Sex Assigned at Not on file Legal Sex Male 3:45 AM MANAGER SQL Gender Identity Not on file Sexual Orientation Not on file documented as of this encounter Plan of Treatment Not on file documented as of this encounter Procedures Procedure Name Priority Date/Time Associated Diagnosis Comments KETONES/BETA HYDROXYBUTYRATE Routine 09/30/2023 1:56 AM MANAGER SQL documented in this encounter Results * KETONES/BETA HYDROXYBUTYRATE (09/30/2023 1:56 AM MANAGER SQL) BETA HYDROXYBUTYRATE 10/01/2023 7:53 AM MANAGER SQL [facility] Comment: Test ordered on incorrect patient This is a corrected result. Previous result was 1.3 mmol/L on 09/30/2023 at 1459 MANAGER SQL Blood Collection / Unknown 09/30/2023 1:56 AM MANAGER SQL 09/30/2023 2:40 PM MANAGER SQL External Provider [facility] CHEMISTRY ORDERABLES Edite d Result - Final Performing Organization Address City/State/[facility] Co de Phone Number [facility] # [id number] [address] [place] [id number] documented in this encounter Visit Diagnoses Not on filedocumented in this encounter Additional Health Concerns Assessment Noted Time PHQ-9 Depression Total Score: 3 03/29/20 21 7:00 AM CDT documented as of this encounter
--- OUTSIDE RECORDS SUMMARY | 2025-07-01 10:25 | XMS_ITS | Clinical Summary ---
Author Organization [facility] [employer] [place] Address [address] [place] [place] [address] Care Team Providers Care Patrol Captain Name Role Phone Unavailable Primary Care Provider Unavailabl e Allergies Active Allergy Reactions Criticality Noted Date Comments Hymenoptera Allergenic Extract Swelling 05/21 Morphine Anaphylaxis,Rash High 08/13/2017 Medications colchicine (COLCRYS) 0.6 mg tablet 1 Active indomethacin (INDOCIN) 25 mg capsule 1 Active fluticasone propionate (FLONASE) 50 mcg/spray [place], Suspension nasal inhalerIndicatio ns:Acute pharyngitis, unspecified etiology Administer 2 Sprays in each nostril daily. 16 Gram 1 Active Active Problems Problem Noted Date Diagnosed Date Sprain of ankle 04/19/2021 Cigarette dependence 08/13/2017 Resolved Problems Problem Noted Date Diagnosed Date Resolved Date Tobacco use 08/13/2017 12/16/2019 Immunizations Immunization Administration Dates Next Due (ADACEL/BOOSTRIX)(10 YR UP) TDAP VACCINE, 0.5ML, IM 05/21/2018 INFLUENZA VACCINE QUADRIVALENT 3 YR UP PF IM 05/2018 INFLUENZA VACCINE QUADRIVALENT 6 MOS UP IM 08/13 Family History Medical History Relation Name Comments No Known Problems Daughter No Known Problems Father Diabetes Maternal Grandfather No Known Problems Maternal Grandmother Colon Cancer Mother Unknown Paternal Grandfather No Known Problems Sister Relation Name Status Comments Daughter Alive Father Alive Maternal Grandfather Alive Maternal Grandmother Alive Mother Alive Paternal Grandfather Paternal Grandmother Alive Sister Alive Social History Tobacco Use Types Packs/Day Years Used Date Smoking Tobacco: Every Day Cigarettes Smokeless Tobacco: Never Alcohol Use Standard Drinks/Week Comments Yes 0 (1 standard drink = 0.6 oz pur e alcohol) occasionally Sex and Gender Information Value Date Recorded Sex Assigned at Not on file 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 Gender Identity Not on file Sexual Orientation Not on file Last Filed Vital Signs Vital Sign Reading Time Taken Comments Blood Pressure 118/72 03/28/2021 11:10 AM CDT Pulse 93 03/28/2021 11:10 AM CDT Temperature 36.5 C (97.7 F) 03/28/2021 11:10 AM CDT Respiratory Rate 16 03/28/2021 11:10 AM CDT Oxygen Saturation 96% 03/28/2021 11:10 AM CDT Inhaled Oxygen Concentration - - Weight 87.1 kg (192 lb) 03/28/2021 11:10 AM CDT Height 167.6 cm (5' 6) 03/28/2021 11:10 AM CDT Body Mass Index 30.99 03/28/2021 11:10 AM CDT Plan of Treatment Health Maintenance Due Date Last Done Comments HPV VACCINES (1 - Male 3-dose series) 2005 HEPATITIS B VACCINES (1 of 3 - 19+ 3-dose series) 2009 INFLUENZA VACCINE (#1) 2025 08/13/2019, 2017 DTAP/TDAP/TD VACCINES (2 - Td or Tdap) 05/21/2028
--- OUTSIDE RECORDS SUMMARY | 2025-07-01 10:25 | XMS_ITS | Clinical Summary ---
Author Organization [facility] Address [address] [place] [address] Care Team Providers Care Head Athletic Trainer Name Role Phone Unavailable Primary Care Provider Unavailabl e Source Comments [facility] [employer],non-owned Affiliates and Associated Physician Practices is amultiple site organization consisting of ambulatory clinics and hospital sitesin [place], [place], [place] and [place]. This disclosure is being madepursuant to the Care Everywhere program and may not contain all information available regarding this patient. 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 Gender Identity Not on file Sexual Orientation Not on file Plan of Treatment Health Maintenance Due Date Last Done Comments HIV SCREENING 2005 HEPATITIS C SCREENING 01/21/2008 DTAP/TDAP/TD VACCINES (1 - Tdap) 2009 HEPATITIS B VACCINE (1 of 3 - 19+ 3-dose series) 2009 HPV VACCINE (1 - 3-dose SCDM series) 2017 COVID-19 VACCINE ( - 2023-2 5 season) 2024 DEPRESSION SCREENING 11/12/2024 INFLUENZA VACCINE (#1) 2025 ZOSTER VACCINE (1 of 2) 01/26/2040 HIB VACCINE Aged Out No longer eligi ble based on patient's age to complete this topic MENINGOCOCCAL (Group B) VACC INE SHARED DECISION-MAKING Aged Out No longer eligibl e based on patient's age to complete this topic MENINGOCOCCAL GROUPS A/C/Y/W VACCINE Aged Out No longer eligible b ased on patient's age to complete this topic PNEUMOCOCCAL VACCINE Aged Out No long er eligible based on patient's age to complete this topic
--- OUTSIDE RECORDS SUMMARY | 2025-07-01 10:25 | XMS_ITS | Clinical Summary ---
Author Organization [facility] Address [address] [place] [address] Care Team Providers Care Fire Hose Curer Name Role Phone No, Physician Primary Care Provider [phone] Allergies Active Allergy Reactions Criticality Noted Date Comments Morphine Unknown 12/15/2022 Medications No known medications Social History Tobacco Use Types Packs/Day Years Used Date Smoking Tobacco: Every Day Cigarettes Tobacco Cessation:Ready to Q uit: Not Asked; Counseling Given: Not Answered Personal Safety Answer Date Recorded Getting School Help Needed Not on file 01/11 Sex and Gender Information Value Date Recorded Sex Assigned at Not on file Legal Sex Male 4:43 PM CDT Gender Identity Not on file Sexual Orientation Not on file Obstetrics History Last Filed Vital Signs Vital Sign Reading Time Taken Comments Blood Pressure 133/83 12/15/2022 12:55 PM WATER QUALITY MANAGER Pulse 94 12/15/2022 12:55 PM WATER QUALITY MANAGER Temperature 36.3 C (97.3 F) 12/15/2022 12:55 PM WATER QUALITY MANAGER Respiratory Rate 16 12/15/2022 12:55 PM WATER QUALITY MANAGER Oxygen Saturation 100% 12/15/2022 12:55 PM WATER QUALITY MANAGER Inhaled Oxygen Concentration - - Weight 90.7 kg (200 lb) 12/15/2022 12:55 PM WATER QUALITY MANAGER Height 170.2 cm (5' 7.01) 12/15/2022 12:[address] Body Mass Index 31.32 12/15/2022 12:55 PM WATER QUALITY MANAGER Plan of Treatment Health Maintenance Due Date Last Done Comments Depression Screening 1990 Hepatitis C Screening 1990 Varicella Vaccines (1 of 2 - 13+ 2-dose series) 2003 Hepatitis B Screening 01/26/2008 Regular Well Visit/Exam 18-64 01/26/2008 Pneumococcal vaccine <65 (1 of 2 - PCV) 2009 HPV Vaccines (1 - 3-dose SCDM series) 2017 Covid-19 Vaccine (3 - season) 2024, 02/17/2021 Influenza Vaccine (#1) 2025 08/13/2019, 2017 DTaP/Tdap/Td Vaccine (2 - Td or Tdap) 05/21/202808/2018 Insurance [facility] Care Teams Fire Hose Curer Relationship Specialty Start Date End Date No, Physician PCP - General 05/02/22
[2025-07-01 11:02] LABS: Influenza A QL RT-PCR Negative (Negative); Influenza B QL RT-PCR Negative (Negative); SARS-CoV-2 RNA PCR Negative (Negative)
== END 2025-07-01 10:04 | disposition home or self-care (01) ==
LOC: CHSLAB 10:08
PROVIDERS: PCP Family Medicine; Visit Provider Family Medicine
DX: R05.9 Cough, unspecified (principal)
CPT/HCPCS: 87636